=== PATIENT | female | born 1945 | race Caucasian/White ===

== ENCOUNTER → 2021-04-22 | Outpatient (CLI) | payer OTHER ==
--- NOTE | 2021-04-23 02:22 | REP ---
INDICATION: UNSP FRACTURE OF UPPER END OF RIGHT HUMERUS, INIT. COMPARISON: None. TECHNIQUE: Neutral, internal rotation, external rotation, axillary, and Y-view of the right shoulder FINDINGS: A comminuted fracture at the level of the humeral neck is appreciated with satisfactory open reduction and orthopedic fixation. Small amount of callus formation is suspected which suggests early healing process. There is no evidence for dislocation. Underlying degenerative changes include irregularity and blunting to the glenoid rim, small osteophyte formation along the inferior margin of the humeral head, and calcifications in the subacromial space. The acromioclavicular joint demonstrates minimal cortical spurring. IMPRESSION: 1. Status post open reduction and fixation for comminuted humeral neck fracture. 2. Moderate arthritic degenerative changes. <Electronically signed by Brendan Laguna > 04/23/21 0219
== END ==
LOC: M SOG 14:18 → M WUC 14:18
PROVIDERS: ATTEND Orthopaedic Surgery Adult Reconstructive Orthopaedic Surgery
DX: S42.201A Unspecified fracture of upper end of right humerus, initial encounter for closed fracture (principal); W18.30XA Fall on same level, unspecified, initial encounter; Y92.009 Unspecified place in unspecified non-institutional (private) residence as the place of occurrence of the external cause

== ENCOUNTER → 2021-05-22 | Outpatient (CLI) | payer OTHER ==
--- NOTE | 2021-05-22 12:26 | REP ---
INDICATION: FX UPPER END HUMERUS RIGHT. COMPARISON: Comparison radiographs April 22, 2021.. TECHNIQUE: Five views of the right shoulder are provided.. FINDINGS: Five views of the right shoulder demonstrate screw plate fixation device unchanged in position it across the proximal humeral fracture. There is diffuse osteopenia. Periarticular soft tissue calcification deposits are again noted unchanged. Glenohumeral and acromioclavicular joints are normally aligned. Fracture is unchanged in position. There is some callus formation visible at the greater tuberosity component of the fracture on oblique view IMPRESSION: Healing proximal humeral fracture. <Electronically signed by Pedro Luis Franz > 05/22/21 [id number]
--- NOTE | 2021-05-22 12:27 | REP ---
INDICATION: PAIN RIGHT WRIST. COMPARISON: None. TECHNIQUE: Four views of the right wrist. FINDINGS: Four views of the right wrist demonstrate diffuse osteopenia. There is chondrocalcinosis at the wrist. Moderate osteoarthritic changes are seen at the navicular multangular and 1st carpometacarpal articulations. No fracture is seen. There is some dorsal carpal swelling. IMPRESSION: Osteoarthritic changes, diffuse osteopenia, and chondrocalcinosis. No acute bony abnormality seen. Some soft tissue swelling. <Electronically signed by Pedro Luis Franz > 05/22/21 [id number]
== END ==
LOC: M SOG 08:42
PROVIDERS: ATTEND Orthopaedic Surgery Adult Reconstructive Orthopaedic Surgery
DX: M19.031 Primary osteoarthritis, right wrist (principal); M85.88 Other specified disorders of bone density and structure, other site; M11.231 Other chondrocalcinosis, right wrist; S42.201A Unspecified fracture of upper end of right humerus, initial encounter for closed fracture; M25.531 Pain in right wrist; X58.XXXA Exposure to other specified factors, initial encounter; Y92.9 Unspecified place or not applicable; Y99.9 Unspecified external cause status